=== PATIENT | female | born 1970 | race Caucasian/White ===

== ENCOUNTER 2018-07-06 20:41 | Emergency (ER) | payer BC, SELFPAY ==
[2018-07-06 20:43] VITALS: BP 162/95; PULSE 79; RESP 17; TEMP 37.1; O2SAT 99; BMI 37.2
[2018-07-06 20:53] VITALS: BP 155/89; PULSE 75; RESP 14; O2SAT 99
[2018-07-06 21:34] VITALS: BP 160/70; PULSE 72; RESP 14; O2SAT 98
[2018-07-06 22:04] VITALS: BP 155/80; PULSE 80; RESP 14; O2SAT 99
--- NOTE | 2018-07-06 22:52 | ED.DCSUM_ITS ---
- ER Visit Summary Date of Service: 07/06/18 Chief Complaint: Right foot infection History of Present Illness: The patient is a 48 F presenting with redness on her right foot. She believes that she was bit by an insect or sustained an abrasion to the distal aspect of her foot on the dorsal surface 2 days ago. She started to develop redness. She went to an urgent care and was placed on Keflex but has only taken 4 doses so far. It has become slightly bigger. She denies any pain with walking. No ankle pain or fevers. Denies any other trauma. No history of diabetes. She does not believe that she was stung by a bee and does not recall anything biting her Physical Examination: Does have mild erythema and warmth of the right foot from the base of the right great toe proximally to the ankle. There is no palpable abscess. No associated streaks of lymphangitis. No tenderness on palpation of the ankle Test Results: None performed Emergency Department Course and Treatment: She was given a dose of IV clindamycin and observe. There was no progression since of necrotizing fasciitis. She has only taken 4 doses of the Keflex so far. I talked with her about options and we both think it is reasonable to switch her to clindamycin and have her give this another 24 hours with strict elevation and warm compresses. If she progresses sooner she will come back or if she develops any streaks of lymphangitis she will come back for admission. Treatment Plan: Wound check in 24 hours unless markedly better Disposition: Home stable condition Impression: Right Foot cellulitis This note was generated with [employer] dictation software. It may contain incorrect words, spelling, and punctuation that were not noted in review of the chart prior to signing ED Disposition - Plan for ED Patient: Chief Complaint: Bite Instructions: ED Infec Skin Cellulitis Prescriptions: Clindamycin [Cleocin] 300 mg PO TID #60 capsule Referrals: [facility] Doctor,Out of [Primary Care Provider] -
[2018-07-06 23:02] VITALS: BP 146/80; PULSE 75; RESP 18; O2SAT 96
== END 2018-07-06 23:03 | disposition home or self-care (01) ==
LOC: ED 21:20
PROVIDERS: Emergency Provider Emergency Medicine
DX: L03.115 Cellulitis of right lower limb (principal)
CPT/HCPCS: 99285; A4216